=== PATIENT | female | born 1970 | race Caucasian/White ===

== ENCOUNTER 2017-04-05 17:14 | Inpatient (IN) | payer BC, OTHER ==
[2017-04-05] MEDS ORDERED: DUONEB 0.5 MG/3 MG ONE (18:24)
[2017-04-05] MEDS ORDERED: SALINE 3% 15 ML NEB TX ONE (18:25)
[2017-04-05] MEDS ORDERED: SALINE 3% 15 ML NEB TX NEB ONE (18:28)
[2017-04-05] MEDS: DUONEB 0.5 MG/3 MG NEB SCH ×2 (18:28→21:45)
[2017-04-05 19:07] LABS: BASOPHILS % (AUTO) 0.3 % (0.2-1.0); EOSINOPHILS # (AUTO) 0.1 x10^3/uL (0.0-0.2); EOSINOPHILS % (AUTO) 0.9 % (0.9-2.9); HEMATOCRIT 42.5 % (36.0-47.0); HEMOGLOBIN 14.7 g/dL (12.0-16.0); LYMPHOCYTES # (AUTO) 2.1 X10^3/uL (1.3-2.9); LYMPHOCYTES % (AUTO) 28.5 % (21.0-51.0); MEAN CORPUSCULAR HEMOGLOBIN 33.1 pg (27.0-34.0); MEAN CORPUSCULAR HGB CONC 34.5 g/dL (33.0-35.0); MEAN CORPUSCULAR VOLUME 95.8 fL (80.0-100.0); MEAN PLATELET VOLUME 8.8 fL (7.4-11.0); MONOCYTES # (AUTO) 0.5 x10^3/uL (0.3-0.8); MONOCYTES % (AUTO) 6.7 % (0.0-13.0); NEUTROPHILS # (AUTO) 4.8 x10^3/uL (2.2-4.8); NEUTROPHILS % (AUTO) 63.6 % (42.0-75.0); PLATELET COUNT 344 X10^3/uL (150.0-450.0); RED BLOOD COUNT 4.43 X10^6/uL (3.5-5.4); RED CELL DISTRIBUTION WIDTH 14.9 % (11.6-16.5); WHITE BLOOD COUNT 7.5 X10^3/uL (3.6-10.0)
[2017-04-05] MEDS ORDERED: TUSSIONEX PENNKINETIC SUSP PO PRN (19:08)
--- NOTE | 2017-04-05 19:13 | RAD ---
HISTORY: Cough and congestion Study: PA and lateral views of the chest. Comparison: None. Findings: The cardiomediastinal silhouette is normal. No focal consolidations, pleural effusions or pneumothora x. Osseous structures demonstrate no acute abnormality. Increased reticular nodular opacities in a pe rihilar distribution. IMPRESSION: 1. Findings which may be consistent with acute viral bronchitis versus reactive airway depending on clinical setting. Reported By:
[2017-04-05 19:16] LABS: ALANINE AMINOTRANSFERASE 19 Units/L (12-78); ALBUMIN 4.4 g/dL (3.4-5.0); ALKALINE PHOSPHATASE 92 Units/L (46-116); ASPARTATE AMINO TRANSFERASE 11 Units/L (15-37); BLOOD UREA NITROGEN 11 mg/dL (7-18); CALCIUM 10.1 mg/dL (8.5-10.1); CARBON DIOXIDE 30.4 mmol/L (21-32); CHLORIDE 101 mmol/L (98-107); CREATININE 0.84 mg/dL (0.55-1.02); SODIUM 140 mmol/L (136-145); TOTAL PROTEIN 8.4 g/dL (6.4-8.2); eGFR BLACK RACES > 60 (>60); eGFR NON BLACK RACES > 60 (>60)
[2017-04-05] MEDS: NS 1/2 1000 ML IV 1,000 ML IV SCH (19:30)
[2017-04-05] MEDS ORDERED: NS 1/2 1000 ML IV 1,000 ML IV ONE (19:30)
[2017-04-05] MEDS: ZITHROMAX INJ 500 MG VIAL 500 MG in NS 250 ML IV 250 ML IV SCH (20:07)
[2017-04-05] MEDS: TUSSIONEX PENNKINETIC SUSP PO SCH (20:15)
[2017-04-05] MEDS ORDERED: SOLU-Medrol 125 MG VIAL IVP SCH (21:00)
[2017-04-05] MEDS ORDERED: ROBITUSSIN DM PO SCH (21:00)
[2017-04-05] MEDS ORDERED: REFLEX: PROVENTIL NEB & PulmiCORT NEB~ NEB SCH (21:00)
[2017-04-05] MEDS: PULMICORT NEB TX 0.5 MG NEB SCH (21:45)
[2017-04-05] MEDS: ROBITUSSIN DM PO SCH (22:19)
[2017-04-05] MEDS: MERREM VIAL 1,000 MG in NS 100 ML IV + SPIKE MINIBAG* 100 ML IV SCH (22:21)
[2017-04-05 23:19] VITALS: BMI 31.3
[2017-04-06] MEDS: DUONEB 0.5 MG/3 MG NEB SCH ×6 (00:53→21:55)
[2017-04-06] MEDS ORDERED: MERREM VIAL ONE (04:48)
[2017-04-06] MEDS ORDERED: NS 100 ML IV 100 ML IV ONE (05:10)
[2017-04-06] MEDS: MERREM VIAL 1,000 MG in NS 100 ML IV + SPIKE MINIBAG* 100 ML IV SCH ×3 (05:31→21:15)
[2017-04-06] MEDS: TUSSIONEX PENNKINETIC SUSP PO SCH ×2 (07:03→21:15)
[2017-04-06] MEDS ORDERED: NS 1/2 1000 ML IV 1,000 ML IV ONE ×2 (07:08→19:23)
[2017-04-06] MEDS: NS 1/2 1000 ML IV 1,000 ML IV SCH ×3 (07:28→19:35)
[2017-04-06] MEDS ORDERED: SOLU-Medrol 40 MG VIAL ONE (08:55)
[2017-04-06] MEDS: PULMICORT NEB TX 0.5 MG NEB SCH ×2 (09:13→21:55)
[2017-04-06] MEDS: ROBITUSSIN DM PO SCH ×3 (09:37→21:15)
[2017-04-06] MEDS: ZITHROMAX INJ 500 MG VIAL 500 MG in NS 250 ML IV 250 ML IV SCH (09:38)
[2017-04-06] MEDS ORDERED: MUCOMYST (RESPIRATORY USE ONLY) NEB SCH (09:45)
--- NOTE | 2017-04-06 12:17 | DR.UPDATE ---
H&P Update History and Physical Update: History and Physical reviewed and patient examined. H & P 04/05/2018 Changes noted: NO
[2017-04-06] MEDS: MUCOMYST 20% 200 MG/ML NEB SCH ×2 (12:45→21:55)
[2017-04-06] MEDS: PROPRANOLOL HCL PO SCH (14:50)
[2017-04-06] MEDS: MAXZIDE 37.5/25 MG PO SCH (15:07)
[2017-04-07] MEDS: DUONEB 0.5 MG/3 MG NEB SCH ×6 (01:10→20:55)
[2017-04-07] MEDS ORDERED: NS 1/2 1000 ML IV 1,000 ML IV ONE ×2 (03:24→14:37)
[2017-04-07] MEDS: MERREM VIAL 1,000 MG in NS 100 ML IV + SPIKE MINIBAG* 100 ML IV SCH ×3 (05:23→21:18)
[2017-04-07] MEDS: NS 1/2 1000 ML IV 1,000 ML IV SCH ×2 (05:57→14:45)
[2017-04-07 06:31] LABS: BASOPHILS % (AUTO) 0.1 % (0.2-1.0); HEMATOCRIT 35.6 % (36.0-47.0); HEMOGLOBIN 12.3 g/dL (12.0-16.0); LYMPHOCYTES # (AUTO) 1.4 X10^3/uL (1.3-2.9); LYMPHOCYTES % (AUTO) 13.7 % (21.0-51.0); MEAN CORPUSCULAR HEMOGLOBIN 33.4 pg (27.0-34.0); MEAN CORPUSCULAR HGB CONC 34.7 g/dL (33.0-35.0); MEAN CORPUSCULAR VOLUME 96.3 fL (80.0-100.0); MEAN PLATELET VOLUME 9.2 fL (7.4-11.0); MONOCYTES # (AUTO) 0.7 x10^3/uL (0.3-0.8); MONOCYTES % (AUTO) 6.6 % (0.0-13.0); NEUTROPHILS % (AUTO) 79.6 % (42.0-75.0); PLATELET COUNT 281 X10^3/uL (150.0-450.0); RED CELL DISTRIBUTION WIDTH 15.1 % (11.6-16.5)
[2017-04-07 07:12] LABS: ALANINE AMINOTRANSFERASE 19 Units/L (12-78); ALBUMIN 3.1 g/dL (3.4-5.0); ALKALINE PHOSPHATASE 71 Units/L (46-116); ASPARTATE AMINO TRANSFERASE 6 Units/L (15-37); BLOOD UREA NITROGEN 12 mg/dL (7-18); CALCIUM 8.9 mg/dL (8.5-10.1); CARBON DIOXIDE 26.6 mmol/L (21-32); CHLORIDE 105 mmol/L (98-107); COR CA(FOR HYPOALB) 9.6 mg/dL (8.5-10.1); CREATININE 0.79 mg/dL (0.55-1.02); SODIUM 141 mmol/L (136-145); TOTAL PROTEIN 6.4 g/dL (6.4-8.2); eGFR BLACK RACES > 60 (>60); eGFR NON BLACK RACES > 60 (>60)
[2017-04-07] MEDS: TUSSIONEX PENNKINETIC SUSP PO SCH ×2 (07:53→20:22)
[2017-04-07] MEDS ORDERED: ESOMEPRAZOLE MAGNESIUM 20 MG PO SCH (09:00)
[2017-04-07] MEDS: PULMICORT NEB TX 0.5 MG NEB SCH ×2 (09:00→20:55)
[2017-04-07] MEDS: ROBITUSSIN DM PO SCH ×4 (09:32→21:17)
[2017-04-07] MEDS: PROPRANOLOL HCL PO SCH (09:33)
[2017-04-07] MEDS: FOLIC ACID TAB 1 MG PO SCH (09:33)
[2017-04-07] MEDS: ZyrTEC TAB 10 MG PO SCH (09:33)
[2017-04-07] MEDS: ZITHROMAX INJ 500 MG VIAL 500 MG in NS 250 ML IV 250 ML IV SCH (09:33)
[2017-04-07] MEDS: PROTONIX TAB 40 MG PO SCH (09:33)
[2017-04-07] MEDS: MAXZIDE 37.5/25 MG PO SCH (09:33)
[2017-04-07] MEDS: MUCOMYST 20% 200 MG/ML NEB SCH (20:55)
[2017-04-08] MEDS: DUONEB 0.5 MG/3 MG NEB SCH ×6 (00:20→21:30)
[2017-04-08] MEDS: NS 1/2 1000 ML IV 1,000 ML IV SCH ×4 (01:15→21:00)
[2017-04-08] MEDS ORDERED: NS 500 ML IV 500 ML IV ONE (04:57)
[2017-04-08 06:01] LABS: BASOPHILS # (AUTO) 0.1 X10^3/uL (0.0-0.1); BASOPHILS % (AUTO) 0.8 % (0.2-1.0); EOSINOPHILS # (AUTO) 0.1 x10^3/uL (0.0-0.2); EOSINOPHILS % (AUTO) 1.5 % (0.9-2.9); HEMATOCRIT 37.3 % (36.0-47.0); HEMOGLOBIN 12.7 g/dL (12.0-16.0); LYMPHOCYTES # (AUTO) 1.9 X10^3/uL (1.3-2.9); LYMPHOCYTES % (AUTO) 27.2 % (21.0-51.0); MEAN CORPUSCULAR HEMOGLOBIN 33.1 pg (27.0-34.0); MEAN CORPUSCULAR VOLUME 97.3 fL (80.0-100.0); MEAN PLATELET VOLUME 8.7 fL (7.4-11.0); MONOCYTES # (AUTO) 0.8 x10^3/uL (0.3-0.8); MONOCYTES % (AUTO) 11.3 % (0.0-13.0); NEUTROPHILS # (AUTO) 4.1 x10^3/uL (2.2-4.8); NEUTROPHILS % (AUTO) 59.2 % (42.0-75.0); PLATELET COUNT 249 X10^3/uL (150.0-450.0); RED BLOOD COUNT 3.84 X10^6/uL (3.5-5.4); WHITE BLOOD COUNT 6.9 X10^3/uL (3.6-10.0)
[2017-04-08] MEDS: MERREM VIAL 1,000 MG in NS 100 ML IV + SPIKE MINIBAG* 100 ML IV SCH ×3 (06:05→21:03)
[2017-04-08] MEDS: TUSSIONEX PENNKINETIC SUSP PO SCH ×2 (06:06→18:49)
[2017-04-08 06:28] LABS: ALANINE AMINOTRANSFERASE 17 Units/L (12-78); ALBUMIN 3.1 g/dL (3.4-5.0); ALKALINE PHOSPHATASE 75 Units/L (46-116); ASPARTATE AMINO TRANSFERASE 8 Units/L (15-37); BLOOD UREA NITROGEN 13 mg/dL (7-18); CALCIUM 8.8 mg/dL (8.5-10.1); CARBON DIOXIDE 30.7 mmol/L (21-32); CHLORIDE 105 mmol/L (98-107); COR CA(FOR HYPOALB) 9.5 mg/dL (8.5-10.1); CREATININE 0.88 mg/dL (0.55-1.02); SODIUM 140 mmol/L (136-145); TOTAL PROTEIN 6.3 g/dL (6.4-8.2); eGFR BLACK RACES > 60 (>60); eGFR NON BLACK RACES > 60 (>60)
[2017-04-08] MEDS: ROBITUSSIN DM PO SCH ×4 (08:44→21:03)
[2017-04-08] MEDS: ZyrTEC TAB 10 MG PO SCH (08:45)
[2017-04-08] MEDS: FOLIC ACID TAB 1 MG PO SCH (08:45)
[2017-04-08] MEDS: PROTONIX TAB 40 MG PO SCH (08:45)
[2017-04-08] MEDS: ZITHROMAX INJ 500 MG VIAL 500 MG in NS 250 ML IV 250 ML IV SCH (08:45)
[2017-04-08] MEDS: PROPRANOLOL HCL PO SCH (08:46)
[2017-04-08] MEDS: MAXZIDE 37.5/25 MG PO SCH (08:52)
[2017-04-08] MEDS: PULMICORT NEB TX 0.5 MG NEB SCH ×2 (09:00→21:30)
--- NOTE | 2017-04-08 10:12 | RAD ---
CHEST RADIOGRAPHS PA AND LATERAL VIEWS CLINICAL HISTORY: 46-year-old female with pneumonia. COMPARISON: None. FINDINGS: ACDF is stable. The cardiopericardial silhouette is stable. Continued prominence of the per ihilar lung markings and interstitium. There is no focal consolidation, pleural effusion or pneumotho rax. The lungs are well inflated. Pulmonary vascularity is normal. Imaged osseous structures are inta ct. Soft tissues are unremarkable. IMPRESSION: Continued prominence of the perihilar lung markings and interstitium, this can be seen with COPD. Reported By:
[2017-04-08] MEDS: SOLU-Medrol 40 MG VIAL IVP SCH ×3 (12:40→21:03)
[2017-04-08] MEDS ORDERED: NS 1/2 1000 ML IV 1,000 ML IV ONE (20:47)
[2017-04-08] MEDS: MUCOMYST 20% 200 MG/ML NEB SCH (21:29)
[2017-04-09] MEDS: DUONEB 0.5 MG/3 MG NEB SCH ×3 (01:15→09:13)
[2017-04-09 04:57] LABS: BASOPHILS % (AUTO) 0.1 % (0.2-1.0); HEMOGLOBIN 13.1 g/dL (12.0-16.0); LYMPHOCYTES # (AUTO) 0.7 X10^3/uL (1.3-2.9); MEAN CORPUSCULAR HEMOGLOBIN 33.1 pg (27.0-34.0); MEAN CORPUSCULAR HGB CONC 34.5 g/dL (33.0-35.0); MEAN CORPUSCULAR VOLUME 96.1 fL (80.0-100.0); MEAN PLATELET VOLUME 8.9 fL (7.4-11.0); MONOCYTES # (AUTO) 0.3 x10^3/uL (0.3-0.8); MONOCYTES % (AUTO) 2.6 % (0.0-13.0); NEUTROPHILS # (AUTO) 8.6 x10^3/uL (2.2-4.8); NEUTROPHILS % (AUTO) 90.3 % (42.0-75.0); PLATELET COUNT 269 X10^3/uL (150.0-450.0); RED BLOOD COUNT 3.95 X10^6/uL (3.5-5.4); RED CELL DISTRIBUTION WIDTH 15.4 % (11.6-16.5); WHITE BLOOD COUNT 9.6 X10^3/uL (3.6-10.0)
[2017-04-09] MEDS: MERREM VIAL 1,000 MG in NS 100 ML IV + SPIKE MINIBAG* 100 ML IV SCH (05:34)
[2017-04-09 05:54] LABS: BAND NEUTROPHILS % 10 % (0-10)
[2017-04-09 05:55] LABS: PLATELET MORPHOLOGY COMMENT NORMAL (NORMAL)
[2017-04-09] MEDS: TUSSIONEX PENNKINETIC SUSP PO SCH (06:10)
[2017-04-09 06:27] LABS: ALANINE AMINOTRANSFERASE 14 Units/L (12-78); ALBUMIN 3.1 g/dL (3.4-5.0); ALKALINE PHOSPHATASE 81 Units/L (46-116); ASPARTATE AMINO TRANSFERASE 8 Units/L (15-37); BLOOD UREA NITROGEN 12 mg/dL (7-18); CALCIUM 9.3 mg/dL (8.5-10.1); CARBON DIOXIDE 29.3 mmol/L (21-32); CHLORIDE 103 mmol/L (98-107); COR NA(FOR HYPERGLY) 138 mmol/L (136-145); CREATININE 0.76 mg/dL (0.55-1.02); SODIUM 137 mmol/L (136-145); TOTAL PROTEIN 6.7 g/dL (6.4-8.2); eGFR BLACK RACES > 60 (>60); eGFR NON BLACK RACES > 60 (>60)
[2017-04-09] MEDS ORDERED: TUSSIONEX PENNKINETIC SUSP ONE (07:00)
--- NOTE | 2017-04-09 07:41 | RAD ---
Examination: Chest, PA and lateral views History: SOB and cough Comparison reference 04/08/2017 Findings: Continued normal heart size with clear lungs and pleural spaces. Impression: No interval change; no acute disease. Reported By:
[2017-04-09 08:23] VITALS: BP 116/63
[2017-04-09] MEDS: MAXZIDE 37.5/25 MG PO SCH (08:45)
[2017-04-09] MEDS: ZyrTEC TAB 10 MG PO SCH (08:45)
[2017-04-09] MEDS: PROTONIX TAB 40 MG PO SCH (08:45)
[2017-04-09] MEDS: ZITHROMAX INJ 500 MG VIAL 500 MG in NS 250 ML IV 250 ML IV SCH (08:45)
[2017-04-09] MEDS: FOLIC ACID TAB 1 MG PO SCH (08:45)
[2017-04-09] MEDS: PROPRANOLOL HCL PO SCH (09:06)
[2017-04-09] MEDS ORDERED: ROBITUSSIN DM ONE (09:07)
[2017-04-09] MEDS: ROBITUSSIN DM PO SCH (09:09)
[2017-04-09] MEDS: MUCOMYST 20% 200 MG/ML NEB SCH ×2 (09:13→09:16)
[2017-04-09] MEDS: PULMICORT NEB TX 0.5 MG NEB SCH (09:13)
== END 2017-04-09 11:27 | disposition home or self-care (01) | DRG 203 ==
LOC: OBS 17:14
PROVIDERS: ADMIT Internal Medicine; ATTEND Internal Medicine
DX: J20.8 Acute bronchitis due to other specified organisms (principal); I10 Essential (primary) hypertension; M06.80 Other specified rheumatoid arthritis, unspecified site
CPT/HCPCS: 36415; 71020; 80053; 85025; 87040; 87070; 87205; 87502; 94640; 94760; A4222; G0378; J0456; J2185; J2920; J2930; J7608; J7620; J7626